=== PATIENT | male | born 1965 | race Hispanic/Latino ===

== ENCOUNTER 2018-10-16 10:08 | Outpatient (CLI) | payer MEDICAID ==
[2018-10-16] MEDS ORDERED: XYLOCAINE TOPICAL 4% TP ONE (10:36)
== END 2018-10-16 10:09 | disposition home or self-care (01) ==
LOC: WOUND 10:08
PROVIDERS: ATTEND Surgery
DX: I87.311 Chronic venous hypertension (idiopathic) with ulcer of right lower extremity (principal); L97.312 Non-pressure chronic ulcer of right ankle with fat layer exposed; L97.212 Non-pressure chronic ulcer of right calf with fat layer exposed; I87.8 Other specified disorders of veins
CPT/HCPCS: 11042; G0463; 99215

== ENCOUNTER 2018-10-16 11:26 | Emergency (ER) | payer MEDICAID, OTHER ==
[2018-10-16 11:51] VITALS: BP 125/88
[2018-10-16] MEDS ORDERED: IBUPROFEN PO ONE (12:27)
[2018-10-16] MEDS ORDERED: TYLENOL #3 PO ONE (12:39)
[2018-10-16] MEDS ORDERED: TYLENOL #3 ONE (12:43)
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
--- NOTE | 2018-10-16 13:24 | XRay Report ---
LUMBOSACRAL SPINE, 3 VIEWS: History: Back pain Findings: No evidence for compression deformities, subluxation or bone lesion. Moderate to severe multilevel degenerative disc disease and facet arthropathy are identified. Bone mineralization is borderline. IVC filter is noted at the L3 level. Impression: No evidence for acute injury. Moderate lumbar spondylosis.
--- NOTE | 2018-10-16 13:25 | XRay Report ---
CERVICAL SPINE, 3 views: History: Neck pain. 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 There is normal height and alignment of the cervical vertebral bodies. No evidence for displaced fracture or or bone lesion. Moderate to severe multilevel degenerative disc disease and mild facet arthropathy are identified. The prevertebral soft tissues are normal thickness. Impression: Cervical spondylosis. No acute injury is identified.
== END 2018-10-16 13:34 | disposition home or self-care (01) ==
LOC: ED 11:26
DX: S13.4XXA Sprain of ligaments of cervical spine, initial encounter (principal); S39.012A Strain of muscle, fascia and tendon of lower back, initial encounter; I10 Essential (primary) hypertension; I25.2 Old myocardial infarction; G89.29 Other chronic pain; V89.2XXA Person injured in unspecified motor-vehicle accident, traffic, initial encounter; Y93.89 Activity, other specified; Y92.488 Other paved roadways as the place of occurrence of the external cause; Y99.8 Other external cause status
CPT/HCPCS: 72040; 72100; 99283

== ENCOUNTER 2018-10-23 10:01 | Outpatient (CLI) | payer MEDICAID ==
[2018-10-23] MEDS ORDERED: XYLOCAINE TOPICAL 4% TP ONE (10:09)
[2018-10-23] MEDS ORDERED: SILVER NITRATE TP ONE (10:09)
== END 2018-10-23 10:02 | disposition home or self-care (01) ==
LOC: WOUND 10:01
PROVIDERS: ATTEND Surgery
DX: I87.311 Chronic venous hypertension (idiopathic) with ulcer of right lower extremity (principal); L97.312 Non-pressure chronic ulcer of right ankle with fat layer exposed; L97.212 Non-pressure chronic ulcer of right calf with fat layer exposed

== ENCOUNTER 2018-10-30 10:00 | Outpatient (CLI) | payer MEDICAID | END 2018-10-30 10:01 | disposition home or self-care (01) | LOC: WOUND 10:00 ==

== ENCOUNTER 2018-11-06 09:52 | Outpatient (CLI) | payer MEDICAID | END 2018-11-06 09:53 | disposition home or self-care (01) | LOC: WOUND 09:52 ==

== ENCOUNTER 2018-11-13 10:06 | Outpatient (CLI) | payer MEDICAID | END 2018-11-13 10:07 | disposition home or self-care (01) | LOC: WOUND 10:06 ==

== ENCOUNTER 2018-11-27 09:56 | Outpatient (CLI) | payer MEDICAID | END 2018-11-27 09:57 | disposition home or self-care (01) | LOC: WOUND 09:56 ==

== ENCOUNTER 2021-04-01 13:11 | Emergency (ER) | payer MEDICAID ==
[2021-04-01] MEDS ORDERED: ASPIRIN 325 MG TAB PO ONE (13:36)
--- NOTE | 2021-04-01 13:59 | Emergency Department Report ---
HPI - General Chief Complaint: Chest Pain Time Seen by Provider: 04/01/21 13:42 - HPI HPI: Room 18 The patient is a 55-year-old male present with a chief complaint of chest pain. Patient states for 1 week he has had intermittent substernal chest pain d escribed as sharpness and dullness in nature. Patient admits to some shortness of breath and diaphoresis but denies nausea/vomiting with this chest pain. Patient denies history of fever or cough. Patient has a history of factor V Leiden and is reportedly on Eliquis. The patient went to see his vascular surgeon today and when he found out about the intermittent chest pain the patient was sent to the ED for further evaluation. Patient states his last stress test occurred 1 to 2 years ago and he had a cardiac catheterization several years ago which showed a "50% blockage." ED Past Medical Hx - Past Medical History Previous Medical History?: Yes Hx Hypertension: Yes Hx Heart Attack/AMI: Yes Additional medical history: Factor V Leiden, chronic leg ulcer, IVC filter, DVT hx, chronic neck pain, chronic back pain. - Surgical History Past Surgical History?: Yes Additional Surgical History: right leg ulcer - Family History Family history: no significant - Social History Smoking Status: Former Smoker (None since age 16) Substance Use Type: None (Denies illicit drug use), Alcohol (Occasional) - Medications Home Medications: Home Medications Medication Instructions Recorded Confirmed Last Taken Type Acetaminophen/Codeine [Tylenol 1 tab PO Q6H PRN #12 tab 10/16/18 Unknown Rx /Codeine # 3 tab] Cyclobenzaprine [Flexeril] 10 mg PO QHS PRN #10 tablet 10/16/18 Unknown Rx Ibuprofen [Motrin] 600 mg PO Q8H PRN #20 tablet 10/16/18 Unknown Rx ED Review of Systems ROS: Stated complaint: CHEST PAIN Other details as noted in HPI Constitutional: diaphoresis. denies: fever Eyes: denies: eye pain Respiratory: shortness of breath. denies: cough Cardiovascular: chest pain Endocrine: no symptoms reported Gastrointestinal: denies: nausea, vomiting Genitourinary: denies: dysuria Musculoskeletal: denies: back pain Neurological: denies: headache Physical Exam - Physical Exam Vital Signs: Vital Signs 04/01/21 13:20 Temperature 98.0 F Pulse Rate 97 H Respiratory 18 Rate Blood Pressure 158/92 [Right] O2 Sat by Pulse 99 Oximetry Physical Exam: GENERAL: The patient is well-developed well-nourished male lying on stretcher not appearing to be in acute distress. [] HEENT: Normocephalic. Atraumatic. Extraocular motions are intact. Patient has moist mucous membranes. NECK: Supple. Trachea midline CHEST/LUNGS: Clear to auscultation. There is no respiratory distress noted. HEART/CARDIOVASCULAR: Regular. There is no tachycardia. There is no gallop rub or murmur. ABDOMEN: Abdomen is soft, nontender. Patient has normal bowel sounds. There is no abdominal distention. SKIN: There is no rash. There is no edema. There is no diaphoresis. NEURO: The patient is awake, alert, and oriented. The patient is cooperative. The patient has no focal neurologic deficits. The patient has normal speech. GCS 15 MUSCULOSKELETAL: There is no evidence of acute injury. ED Course Vital Signs 04/01/21 13:20 Temperature 98.0 F Pulse Rate 97 H Respiratory 18 Rate Blood Pressure 158/92 [Right] O2 Sat by Pulse 99 Oximetry ED Medical Decision Making - Lab Data Result diagrams: 04/01/21 14:12 04/01/21 14:12 Laboratory Tests 04/01/21 04/01/21 04/01/21 14:12 14:12 14:12 WBC 10.1 RBC 4.85 Hgb 14.3 Hct 42.4 MCV 87 MCH 30 MCHC 34 RDW 14.3 Plt Count 287 Lymph % (Auto) 22.5 [place] % (Auto) 6.4 Eos % (Auto) 2.1 Baso % (Auto) 1.1 Lymph # (Auto) 2.3 [place] # (Auto) 0.6 Eos # (Auto) 0.2 Baso # (Auto) 0.1 Seg Neutrophils % 67.9 Seg Neutrophils # 6.9 D-Dimer 309.16 H Sodium 138 Potassium 4.2 Chloride 104.4 Carbon Dioxide 22 Anion Gap 16 BUN 10 Creatinine 0.8 Estimated GFR > 60 BUN/Creatinine Ratio 13 Glucose 97 Calcium 9.1 Total Bilirubin 0.40 AST 17 ALT 24 Alkaline Phosphatase 117 Troponin T < 0.010 Total Protein 7.5 Albumin 3.9 Albumin/Globulin Ratio 1.1 - EKG Data -: EKG Interpreted by Ct EKG shows normal: sinus rhythm Rate: normal - EKG Data When compared to previous EKG there are: previous EKG unavailable Interpretation: other (No ischemic changes seen) - Radiology Data Radiology results: pending (VQ scan), report reviewed (Chest x-ray), image reviewed (Chest x-ray) interpreted by me: Chest x-ray-no focal filtrate, no pneumothorax. [facility] [address] [place] [address] XRay Report Signed Patient: SALINA ORTA MR#: [id number] : 1965 Acct:[id number] Age/Sex: 55 / M ADM Date: 04/01/21 Loc: ED Attending Dr: Ordering Physician: LAWANDA GLYNN MD Date of Service: 04/01/21 Procedure(s): XR chest 1V ap Accession Number(s): [id number] cc: LAWANDA GLYNN MD Fluoro Time In [place] nutes: CHEST 1 VIEW 04/01/2021 2:03 PM INDICATION / CLINICAL INFORMATION: Chest pain. COMPARISON: None available. FINDINGS: SUPPORT DEVICES: None. HEART / MEDIASTINUM: No significant abnormality. LUNGS / PLEURA: No significant pulmonary or pleural abnormality. No pneumothorax. ADDITIONAL FINDINGS: No significant additional findings. IMPRESSION: 1. No acute findings. Signer Name: Ramon Badillo MD Signed: 04/01/2021 3:06 PM Workstation Name: [id number] Transcribed By: BRODIE Dictated By: Ramon Badillo MD Electronically Authenticated By: Ramon Badillo MD Signed Date/Time: 04/01/21 1506 DD/ 1506 TD/TT: Print Cancel - Differential Diagnosis ACS, unstable angina, PE, pericarditis, GERD Critical care attestation.: If time is entered above; I have spent that time in minutes in the direct care of this critically ill patient, excluding procedure time. ED Disposition Clinical Impression: Chest pain Disposition: OP ADMIT IP TO THIS HOSP Is pt being admited?: Yes Does the pt Need Aspirin: Yes Condition: Fair Instructions: Nonspecific Chest Pain, Adult Time of Disposition: 15:52 (Hospitalist paged (Dr. Lloyd)) Heart Score - HEART Score History: Moderately suspicious EKG: Non-specific Age: 45-65 Risk factors: 1-2 risk factors Troponin: < normal limit HEART Score: 4 - EKG Read Time Time EKG Completed: 13:26 EKG Read Time: 13:29
[2021-04-01] MEDS ORDERED: fentaNYL 100 MCG/2 ML INJ IV ONE (14:31)
[2021-04-01] MEDS ORDERED: ONDANSETRON 4 MG/2 ML INJ IV ONE (14:31)
[2021-04-01 14:41] LABS: Basophils # (Auto) 0.1 K/mm3 (0.0-0.1); Basophils % (Auto) 1.1 % (0.0-1.8); Eosinophils # (Auto) 0.2 K/mm3 (0.0-0.4); Eosinophils % (Auto) 2.1 % (0.0-4.3); Hematocrit 42.4 % (35.5-45.6); Hemoglobin 14.3 gm/dl (11.8-15.2); Lymphocytes # (Auto) 2.3 K/mm3 (1.2-5.4); Lymphocytes % (Auto) 22.5 % (13.4-35.0); Mean Corpuscular HGB Conc 34 % (32-34); Mean Corpuscular Volume 87 fl (84-94); Monocytes # (Auto) 0.6 K/mm3 (0.0-0.8); Monocytes % (Auto) 6.4 % (0.0-7.3); Platelet Count 287 K/mm3 (140-440); Red Blood Count 4.85 M/mm3 (3.65-5.03); Red Cell Distribution Width 14.3 % (13.2-15.2)
[2021-04-01 15:05] LABS: Alanine Aminotransferase 24 units/L (7-56); Albumin 3.9 g/dL (3.9-5); BUN/Creatinine Ratio 13; Blood Urea Nitrogen 10 mg/dL (9-20); Calcium 9.1 mg/dL (8.4-10.2); Hemolysis Index 21
--- NOTE | 2021-04-01 15:10 | XRay Report ---
CHEST 1 VIEW 04/01/2021 2:03 PM INDICATION / CLINICAL INFORMATION: Chest pain. COMPARISON: None available. FINDINGS: SUPPORT DEVICES: None. HEART / MEDIASTINUM: No significant abnormality. LUNGS / PLEURA: No significant pulmonary or pleural abnormality. No pneumothorax. ADDITIONAL FINDINGS: No significant additional findings. IMPRESSION: 1. No acute findings. Signer Name: Ramon Badillo MD Signed: 04/01/2021 3:06 PM Workstation Name: [id number]
[2021-04-01] MEDS ORDERED: LORazepam 2 MG/ML VIAL IV SCH (17:00)
[2021-04-01] MEDS ORDERED: PANTOPRAZOLE 40 MG TAB PO SCH (17:00)
--- NOTE | 2021-04-01 17:24 | Event Note ---
55-year-old male with hypertension factor V Leiden deficiency, status post IVC filter placement, history of DVT currently on therapeutic anticoagulation presents to ED for evaluation of atypical chest pain. Patient seen and evaluated in the emergency department. All lab and imaging studies reviewed. Patient treated" with chest pain protocol. Serial cardiac enzymes, EKG and telemetry monitoring were unremarkable. Patient localized site of pain in the epigastric region. Patient symptoms consistent with gastroesophageal reflux disease. Patient treated with PPI therapy. Patient medically optimized and back to usual state of health and subsequently discharged home instructed to follow-up with primary care physician within 3 to 5 days as well as hematology service within 3 to 5 days for further care and outpatient management. Patient counseled regarding balanced diet, increase physical activity at discharge, as well as outpatient pulmonary follow-up for sleep study. Physical Exam: GENERAL: The patient is well-developed well-nourished male lying on stretcher not appearing to be in acute distress. [] HEENT: Normocephalic. Atraumatic. Extraocular motions are intact. Patient has moist mucous membranes. NECK: Supple. Trachea midline CHEST/LUNGS: Clear to auscultation. There is no respiratory distress noted. HEART/CARDIOVASCULAR: Regular. There is no tachycardia. There is no gallop rub or murmur. ABDOMEN: Abdomen is soft, nontender. Patient has normal bowel sounds. There is no abdominal distention. SKIN: There is no rash. There is no edema. There is no diaphoresis. NEURO: The patient is awake, alert, and oriented. The patient is cooperative. The patient has no focal neurologic deficits. The patient has normal speech. GCS 15 MUSCULOSKELETAL: There is no evidence of acute injury.
[2021-04-01 18:11] VITALS: BP 121/58
--- NOTE | 2021-04-06 14:18 | Electrocardiograph Report ---
[facility] Test Date: 2021-04-01 Test Time: 13:26:28 Pat Name: SALINA ORTA Department: Room: Gender: M Can Piler: ROBERTO : 1965 Requested By: LAWANDA GLYNN Order Number: [id number] Reading MD: Forrest Grace Measurements Intervals [place] Rate: 88 P: 26 OK: 193 QRS: -5 QRSD: 121 T: 29 QT: 379 QTc: 458 Interpretive Statements Sinus rhythm Normal ECG No previous ECG available for comparison Electronically Signed On 04-06-2021 14:17:34 EDT by Forrest Grace
== END 2021-04-01 19:04 | disposition home or self-care (01) ==
LOC: ED 13:11
DX: R07.89 Other chest pain (principal); I10 Essential (primary) hypertension; Z98.890 Other specified postprocedural states; Z87.891 Personal history of nicotine dependence; Z79.1 Long term (current) use of non-steroidal anti-inflammatories (NSAID); Z79.899 Other long term (current) drug therapy
CPT/HCPCS: 36415; 71045; 80053; 84484; 85025; 85379; 93005; 96374; 96375; 99284; J2060; J2405; J3010

== ENCOUNTER 2021-05-31 06:26 | Day surgery (SDC) | payer MEDICAID ==
[2021-05-31 07:39] LABS: Basophils % (Auto) 0.6 % (0.0-1.8); Eosinophils # (Auto) 0.1 K/mm3 (0.0-0.4); Eosinophils % (Auto) 2.3 % (0.0-4.3); Hematocrit 40.4 % (35.5-45.6); Hemoglobin 14.3 gm/dl (11.8-15.2); Lymphocytes # (Auto) 1.6 K/mm3 (1.2-5.4); Mean Corpuscular HGB Conc 35 % (32-34); Mean Corpuscular Volume 86 fl (84-94); Monocytes # (Auto) 0.5 K/mm3 (0.0-0.8); Platelet Count 216 K/mm3 (140-440); Red Cell Distribution Width 14.5 % (13.2-15.2)
[2021-05-31 07:49] LABS: INR 0.98 (0.87-1.13)
[2021-05-31 07:50] LABS: Partial Thromboplastin Time 28.1 Sec. (24.2-36.6)
[2021-05-31 07:56] LABS: Blood Urea Nitrogen 14 mg/dL (9-20); Calcium 8.5 mg/dL (8.4-10.2); Hemolysis Index 3
[2021-05-31 07:59] LABS: BUN/Creatinine Ratio 20
[2021-05-31] MEDS ORDERED: SODIUM CHLORIDE 0.9% 500 ML 500 ML IV SCH (08:00)
--- NOTE | 2021-05-31 08:45 | Anesthesia Consultation ---
Anesthesia Consult and Med Hx Date of service: 05/31/21 - Airway Anesthetic Teeth Evaluation: Dentures (full upper and lower) ROM Head & Neck: Adequate Mental/Hyoid Distance: Adequate Mallampati Class: Class III Intubation Access Assessment: Possibly Difficult - Pre-Operative Health Status ASA Pre-Surgery Classification: ASA3 Proposed Anesthetic Plan: MAC - Pulmonary Hx Smoking: Yes (former smoker) - Cardiovascular System Hx Hypertension: Yes Hx Heart Attack/AMI: Yes Hx Peripheral Vascular Disease: Yes - Central Nervous System Hx Seizures: Yes - Other Systems Hx Obesity: Yes (BMI 34.8) - Additional Comments Anesthesia Medical History Comments: inherited blood clotting disorder
--- NOTE | 2021-05-31 08:46 | Anesthesia Day of Surgery ---
Anesthesia Day of Surgery - Day of Surgery Patient Examined: Yes Patient H&P Reviewed: Yes Patient is NPO: Yes
[2021-05-31] MEDS ORDERED: MIDAZOLAM 2 MG/2 ML INJ ONE (09:08)
[2021-05-31] MEDS ORDERED: HYDROmorphone 1 MG/1 ML INJ ONE (09:08)
[2021-05-31] MEDS ORDERED: LIDOCAINE MPF (2%) 20 MG/1 ML VIAL 5 ML ONE (09:09)
[2021-05-31] MEDS ORDERED: HEPARIN/NS 5000 UNIT/500ML 1,000 ML IR ONE (09:09)
[2021-05-31] MEDS ORDERED: SODIUM CHLORIDE 0.9% 1000 ML 1,000 ML ONE (09:11)
[2021-05-31] MEDS: ceFAZolin/Water 2 GM/20 ML 2 GM/20 ML SYRINGE IV ONE ×2 (09:35→09:45)
[2021-05-31] MEDS: LIDOCAINE 1%/EPINEPHRINE 1:100,000 VIAL (20 ML) INFILTRATI ONE ×2 (09:55→10:23)
[2021-05-31] MEDS: HEPARIN 10,000 UNITS/10 ML VIAL ONE ×6 (10:05→13:26)
[2021-05-31] MEDS ORDERED: propofoL 200 MG/20 ML VIAL IV ONE ×4 (11:31→13:16)
[2021-05-31] MEDS ORDERED: HEPARIN/NS 5000 UNIT/500ML 500 ML IR ONE (12:04)
[2021-05-31] MEDS ORDERED: APIXABAN 5 MG TAB PO NR (13:45)
[2021-05-31] MEDS ORDERED: APIXABAN 5 MG TAB ONE (14:26)
[2021-05-31] MEDS ORDERED: oxyCODONE /ACETAMINOPHEN 5-325MG TAB PO ONE (14:58)
[2021-05-31] MEDS ORDERED: HYDROmorphone 1 MG/1 ML INJ IV ONE (14:58)
--- NOTE | 2021-05-31 15:10 | Operative Report ---
Operative Report Operative Report: EXAM: 1. Ultrasound-guided access of the right lower common femoral vein stent, antegrade 2. Selection of the right external iliac vein, common iliac vein, and IVC with venography. 3. Angioplasty of the right common iliac vein stent, external iliac vein stent, and common femoral vein stent with a 10 mm x 40 mm conquest angioplasty balloon and 12 mm x 40 mm conquest angioplasty balloon 4. Ultrasound-guided access of the right internal jugular vein. 5. Selection of the IVC, right common iliac vein, and right external iliac vein from a right jugular approach. 6. Selection of the right common femoral vein from a right jugular approach, antegrade. 7. Angioplasty of the right common femoral vein with a 7 mm x 40 mm angioplasty balloon, 8 mm x 40 mm conquest angioplasty balloon, and 10 mm x 40 mm conquest angioplasty balloon 8. Attempted ultrasound-guided access of the right common femoral vein stent, retrograde. 9. Selection of the right profundofemoral vein from a right internal jugular vein approach. 10. Angioplasty of the right profundofemoral vein, and common femoral vein with a 4 mm x 80 mm and 7 mm x 80 mm angioplasty balloon. Subsequent angioplasty with an 8 mm x 40 mm angioplasty balloon. 11. 7 Sammarinese mold cleaner mechanical thrombectomy of the right common iliac vein, external iliac vein, and common femoral vein with 8 Sammarinese MPA guide aspiration thrombectomy 12. Angioplasty of the right common iliac vein with a 10 mm x 40 mm conquest angioplasty balloon and angioplasty of the in-stent restenosis with a 12 mm x 40 mm conquest angioplasty balloon 13. Angioplasty of the right common femoral vein with an 8 mm x 40 mm angioplasty balloon DATE: 05/31/2021 AUDIO VISUAL COORDINATOR: SALINA KIM MD INDICATION: 55-year-old male with hypercoagulable condition and previous placement of venous stents by Dr. Lawrence who presents for evaluation and treatment of right calf venous ulcer. Diagnostic venogram was performed demonstrating occlusion of the iliac vein stents. MEDICATIONS: Please see nursing report for full details. DEVICES: 4 mm x 80 mm angioplasty balloon, Frank 7 mm x 40 mm angioplasty balloon, Frank 7 mm x 80 mm angioplasty balloon, Frank 8 mm x 40 mm angioplasty balloon, EverCross 8 mm x 40 mm conquest angioplasty balloon 8 mm x 60 mm [place] angioplasty balloon 10 mm x 40 mm conquest angioplasty balloon 12 mm x 40 mm conquest angioplasty balloon CONTRAST: Please see Project Controls Specialist report for full details ANESTHESIA: MAC PROCEDURE: The risks, benefits, and alternatives were discussed with the patient; written informed consent was obtained. The patient's right neck and the groins were prepped and draped in a sterile fashion. Ultrasound was used to evaluate the right common femoral vein which was occluded. The right superficial femoral vein was assessed and this was atretic without a significant lumen. This was essentially obliterated with some collateral vessels in the area. The right profunda femoral vein was atretic but larger than the superficial femoral vein. The small lumen was patent. Ultrasound was used to evaluate the right occluded femoral vein stent and under direct ultrasound guidance, a 21-gauge micropuncture needle was used to access the stent and vein. I could not pass a 0.018 inch wire through the occluded stent. I then remove the 21-gauge needle, and reaccess to the right lower common femoral vein stent with a 18-gauge needle and was able to pass a Glidewire advantage through the needle and into the common iliac vein occluded stent. I was then able to push the wire into the midportion of the iliac portion of the occluded stent and exchanged the needle for a transitional dilator. I then passed the wire through the rest of the stent and into the IVC. Transitional dilator were then exchanged for a 5 Sammarinese sheath. Catheter was used to select the IVC and digital subtraction angiography was performed demonstrating patency of the IVC and the infrarenal IVC filter. There is reflux of dye into the left common iliac vein. The right proximal most common iliac vein is patent. The rest of the common iliac vein which was stented was occluded and the external iliac vein which was stented was occluded. Catheter pullback venogram was performed. Afterwards, angioplasty was performed of the right common iliac vein stent, external iliac vein stent, and common femoral vein stent with a 10 mm x 40 mm conquest angioplasty balloon and a 12 mm x 40 mm angioplasty balloon. I then evaluated the area with ultrasound and could not find a venous site below my original puncture which was a amenable for puncture. I then attempted to access the stent with an 18-gauge needle again from an antegrade direction but was unsuccessful in passing a wire distally. The right neck was prepped and draped in sterile fashion. Under direct ultrasound guidance, I accessed the right internal jugular vein with a 21-gauge micropuncture needle. 0.018 inch wire was passed into the IVC. Needle was exchanged for transitional dilator. Wire was exchanged for a 0.035 inch wire which was passed into the IVC. Transitional dilator was then exchanged for a 5 Sammarinese sheath and then an 8 Sammarinese [place] destination positioned in the IVC. I then selected the right common iliac vein, external iliac vein, and common femoral vein from a jugular approach. Using a multitude of wires and catheters, I was able to cross the occlusion in the common femoral vein and passed a wire into the profunda femoral vein. The profundofemoral vein was relatively small in caliber and I decided that stenting into such a small vein would likely be unsuccessful long-term and would long- term create more morbidity in general. In order to pass a balloon into the profunda femoral vein, I needed to dilate the common femoral vein occluded stent. Therefore, I used sequential dilatation of the common femoral vein stent With a 7 mm x 40 mm angioplasty balloon, 8 mm x 40 mm angioplasty balloon, and 10 mm x 40 mm angioplasty balloon. I then was able to dilate the right profunda femoral vein with a 4 mm x 80 mm angioplasty balloon, 7 mm x 80 mm angioplasty balloon, an 8 mm x 40 mm angioplasty balloon. Digital subtraction angiography demonstrated 20% residual narrowing of the profunda femoral vein, and lower portion of the common femoral vein. There was debris within the common iliac vein stents in the right common femoral vein stent. The debris within the common iliac vein stents and the right common femoral vein stent was then treated with mechanical thrombectomy with a 7 Sammarinese mold cleaner device and 8 Sammarinese MPA guide catheter to aspirate the rest of the debris. 10 mm x 40 mm angioplasty balloon was then used to perform angioplasty throughout the stented sections again and a 12 mm x 40 mm angioplasty balloon was performed throughout the stented sections again. Digital subtraction angiography demonstrated patency of the right common femoral vein stented section, external iliac vein stented section, and common iliac vein. The right profunda femoral vein was then selected and digital subtraction angiography was performed demonstrating 20% residual narrowing of the upper portion of the profunda femoral vein and the lowest portion of the common femoral vein. This was then treated with an 8 mm x 40 mm angioplasty balloon. Repeat digital subtraction angiography demonstrated less than 10% residual narrowing. At this point, all wires, catheters, and sheaths were removed. Pressure was held until hemostasis was achieved. Patient tolerated the procedure well. No immediate postprocedural complications. FINDINGS: Please see procedure note above IMPRESSION: Successful deep venous reconstruction of the right iliac and femoral vein stents with angioplasty and thrombectomy as described above.
--- NOTE | 2021-05-31 15:10 | Short Stay Summary ---
Short Stay Documentation Date of service: 05/31/21 Narrative H&P: 55-year-old male with multiple medical issues who presents with venous ulcer of the right calf status post iliac and common femoral vein stenting by Dr. Lawrence which thrombosed. Patient has underlying hypercoagulable condition. Patient presents for venous reconstruction. - History Principal diagnosis: Compression of vein H&P: obtained from office - Allergies and Medications Current Medications: Allergies No Known Allergies Allergy (Verified 05/31/21 07:02) Home Medications Medication Instructions Recorded Confirmed Last Taken Type Acetaminophen/Codeine [Tylenol 1 tab PO Q6H PRN #12 tab 10/16/18 Unknown Rx /Codeine # 3 tab] Cyclobenzaprine [Flexeril] 10 mg PO QHS PRN #10 tablet 10/16/18 Unknown Rx Ibuprofen [Motrin] 600 mg PO Q8H PRN #20 tablet 10/16/18 Unknown Rx LORazepam [Ativan] 1 mg PO QHS #24 tab 04/01/21 Unknown Rx Pantoprazole [Protonix] 40 mg PO QDAY #30 tablet 04/01/21 Unknown Rx Active Medications Sodium Chloride (Nacl 0.9% 500 Ml) 500 mls @ 50 mls/hr IV DIRECT BRANDAN - Physical exam General appearance: mild distress (right calf venous ulcer) Lungs: Normal air movement Gastrointestinal: normal, obese Extremities: normal temperature, normal color, abnormal (right calf vein ulcer) - Brief post op/procedure progress note Date of procedure: 05/31/21 Pre-op diagnosis: Compression of vein, chronic deep venous thrombosis, venous ulcer Post-op diagnosis: same Procedure: 1. Ultrasound-guided access of the right lower common femoral vein stent, antegrade 2. Selection of the right external iliac vein, common iliac vein, and IVC with venography. 3. Angioplasty of the right common iliac vein stent, external iliac vein stent, and common femoral vein stent with a 10 mm x 40 mm conquest angioplasty balloon and 12 mm x 40 mm conquest angioplasty balloon 4. Ultrasound-guided access of the right internal jugular vein. 5. Selection of the IVC, right common iliac vein, and right external iliac vein from a right jugular approach. 6. Selection of the right common femoral vein from a right jugular approach, antegrade. 7. Angioplasty of the right common femoral vein with a 7 mm x 40 mm angioplasty balloon, 8 mm x 40 mm conquest angioplasty balloon, and 10 mm x 40 mm conquest angioplasty balloon 8. Attempted ultrasound-guided access of the right common femoral vein stent, retrograde. 9. Selection of the right profundofemoral vein from a right internal jugular vein approach. 10. Angioplasty of the right profundofemoral vein, and common femoral vein with a 4 mm x 80 mm and 7 mm x 80 mm angioplasty balloon. Subsequent angioplasty with an 8 mm x 40 mm angioplasty balloon. 11. 7 Nicaraguan bobbin cleaner mechanical thrombectomy of the right common iliac vein, external iliac vein, and common femoral vein with 8 Nicaraguan MPA guide aspiration thrombectomy 12. Angioplasty of the right common iliac vein with a 10 mm x 40 mm conquest angioplasty balloon and angioplasty of the in-stent restenosis with a 12 mm x 40 mm conquest angioplasty balloon 13. Angioplasty of the right common femoral vein with an 8 mm x 40 mm angioplasty balloon Anesthesia: MAC Surgeon: SALINA KIM Estimated blood loss: minimal Condition: stable - Hospital course Hospital course: Patient tolerated procedure without issue. Patient ready for discharge. - Disposition Condition at discharge: Stable Disposition: 01 HOME / SELF CARE / HOMELESS - Discharge Diagnoses (1) Compression of vein Status: Acute (2) Deep venous thrombosis, chronic Status: Acute (3) DVT (deep venous thrombosis) Status: Acute (4) Venous ulcer Status: Acute (5) Venous ulcer of right lower extremity with varicose veins Status: Acute Short Stay Discharge Plan Activity: advance as tolerated Weight Bearing Status: Weight Bear as Tolerated Diet: regular Wound: keep clean and dry, other (Take off pressure bandage from right groin tonight. Keep right groin and right neck clean and dry and do not get wet for 2 days. Take Eliquis 10 mg (two 5 mg tablets) by mouth twice a day for the next 7 days. Take 10 mg of Eliquis tonight.) Follow up with: SALINA KIM MD [Staff Physician] - 7 Days
--- NOTE | 2021-05-31 15:34 | Post Anesthesia Evaluation ---
- Post Anesthesia Evaluation Patient Participated: Yes Airway Patent: Yes Stable Respiratory Function: Yes Nausea/Vomiting: No Temp > 96.8F: Yes Pain Manageable: Yes Adequeate Hydration: Yes Anesthesia Complications: No Block Receding Appropriately: Not Applicable Patient on Ventilator: No
[2021-05-31 16:09] VITALS: BP 125/77
== END 2021-05-31 16:08 | disposition home or self-care (01) ==
LOC: CATHLABREC 06:26
PROVIDERS: ATTEND Radiology Diagnostic Radiology
DX: I87.1 Compression of vein (principal); I70.221 Atherosclerosis of native arteries of extremities with rest pain, right leg; I11.0 Hypertensive heart disease with heart failure; I50.9 Heart failure, unspecified; E78.00 Pure hypercholesterolemia, unspecified; E66.9 Obesity, unspecified; Z87.891 Personal history of nicotine dependence; Z79.899 Other long term (current) drug therapy; Z98.890 Other specified postprocedural states; Z68.34 Body mass index [BMI] 34.0-34.9, adult
CPT/HCPCS: 36415; 37187; 37248; 37249; 75820; 76937; 80048; 85025; 85610; 85730; C1725; C1757; C1769; C1887; C1894; J0690; J1170; J1644; J2250; J2704; J7030